=== PATIENT | male | born 1995 | race Caucasian/White ===

== ENCOUNTER 2020-03-08 17:20 | Emergency (ER) | payer BC ==
[2020-03-08 19:40] LABS: Protime INR 0.93
[2020-03-08 19:41] LABS: Absolute Lymphocytes (CBC) 2.9 K/uL (0.7-4.9); Basophils % 0.6 % (0-1.3); Hematocrit 41.8 % (39.6-49.0); Lymphocytes % 25.7 % (15.3-44.8); MPV 8.3 fL (7.6-11.3); RBC Red Blood Cell Count 4.77 M/uL (4.33-5.43)
[2020-03-08 19:47] LABS: BUN Blood Urea Nitrogen 10 mg/dL (7-18); Bicarbonate 29 mmol/L (21-32); Glucose Level 86 mg/dL (74-106); Magnesium 2.3 mg/dL (1.8-2.4); Potassium 4.1 mmol/L (3.5-5.1); Sodium Level 141 mmol/L (136-145); Troponin (Emerg Dept Use Only) < 0.02 ng/mL (0.0-0.045)
--- NOTE | 2020-03-08 20:02 | RAD REPORT ---
EXAM DESCRIPTION: Kim Valentine And Carlito (2 Views)03/08/2020 7:00 pm CLINICAL HISTORY: Chest pain COMPARISON: January 2020 FINDINGS: The lungs appear clear of acute infiltrate. The heart is normal size IMPRESSION: No acute abnormalities displayed
[2020-03-08 20:03] LABS: C-Reactive Protein < 2.90 mg/L (<3.00); NT PRO-BNP < 5 pg/mL (<125)
--- NOTE | 2020-03-08 20:21 | ER ---
Nurse's Notes [facility] Name: Danny Buckley Age: 24 yrs Sex: Male : 1995 Arrival Date: 03/08/2020 Time: 17:22 Bed 6 Private MD: Diagnosis: Chest pain, unspecified Presentation: 03/08 17:40 Chief complaint: Patient states: "I wasn't going to come, but for the last week and a jd3 half my left arm hurts off and on and with the arm pain, my chest hurts too.". Coronavirus screen: At this time, the client does not indicate any symptoms associated with coronavirus-19. Ebola Screen: Patient negative for fever greater than or equal to 101.5 degrees Fahrenheit, and additional compatible Ebola Virus Disease symptoms. Initial Sepsis Screen: Does the patient meet any 2 criteria? No. Patient's initial sepsis screen is negative. Does the patient have a suspected source of infection? No. Patient's initial sepsis screen is negative. Risk Assessment: Do you want to hurt yourself or someone else? Patient reports no desire to harm self or others. Onset of symptoms was March 08, 2020. 17:40 Method Of Arrival: Ambulatory jd3 17:40 Acuity: BE 3 jd3 Historical: - Allergies: 17:43 No Known Allergies; jd3 - Home Meds: 17:43 Claritin Oral [Active]; jd3 17:43 Vyvanse oral oral [Active]; jd3 - PMHx: 17:43 ADD/ADHD; jd3 - PSHx: 17:43 Appendectomy; jd3 - Immunization history:: Adult Immunizations up to date. - Social history:: Smoking status: Reported history of juuling and/or vaping. Screenin:32 Abuse screen: Denies threats or abuse. Denies injuries from another. Nutritional lp1 screening: No deficits noted. Tuberculosis screening: No symptoms or risk factors identified. Fall Risk None identified. Assessment: 19:30 General: Appears in no apparent distress. Behavior is calm, cooperative, appropriate lp1 for age. Pain: Complains of pain in chest Pain radiates to left arm Pain currently is 0 out of 10 on a pain scale. Quality of pain is described as sharp, Pain began x 1 week Is intermittent. Neuro: Level of Consciousness is awake, alert, obeys commands. Cardiovascular: Capillary refill < 3 seconds in bilateral fingers Patient's skin is warm and dry. Rhythm is sinus bradycardia. Respiratory: Airway is patent Respiratory effort is even, unlabored, Respiratory pattern is regular, symmetrical, Breath sounds are clear bilaterally. GI: No signs and/or symptoms were reported involving the gastrointestinal system. : No signs and/or symptoms were reported regarding the genitourinary system. EENT: No signs and/or symptoms were reported regarding the EENT system. Derm: Skin is pink, warm \\T\\ dry. Musculoskeletal: No deficits noted. Vital Signs: 17:44 BP 136 / 92; Pulse 62; Resp 18 S; Temp 98.8(O); Pulse Ox 99% on R/A; Weight 92.99 kg jd3 (R); Height 6 ft. 0 in. (182.88 cm) (R); Pain 4/10; 19:32 BP 123 / 80; Pulse 49; Resp 16; Pulse Ox 100% on R/A; lp1 20:28 BP 127 / 70; Pulse 50; Resp 19; Pulse Ox 100% on R/A; lp1 17:44 Body Mass Index 27.80 (92.99 kg, 182.88 cm) jd3 ED Course: 17:22 Patient arrived in ED. as 17:41 Triage completed. jd3 17:43 Arm band placed on. jd3 18:59 Chest Pa And Lat (2 Views) XRAY In Process Unspecified. EDMS 19:03 Curly Mcmullen PA is PHCP. jr8 19:03 Memo Granda MD is Attending Physician. jr8 19:09 Cindy Morrison, ESTER is Primary Nurse. lp1 19:20 Inserted saline lock: 20 gauge in right antecubital area, using aseptic technique. lp1 Blood collected. 19:20 Initial lab(s) drawn, by me, sent to lab. lp1 19:32 Patient has correct armband on for positive identification. Placed in gown. Bed in low lp1 position. Call light in reach. playground monitor on. Pulse ox on. NIBP on. 19:32 Patient maintains SpO2 saturation greater than 95% on room air. lp1 20:19 Frederic Tobias MD is Referral Physician. jr8 20:28 No provider procedures requiring assistance completed. IV discontinued, No lp1 redness/swelling at site. Pressure dressing applied. Administered Medications: No medications were administered Outcome: 20:20 Discharge ordered by . caryl 20:28 Discharged to home ambulatory. lp1 20:28 Condition: good 20:28 Discharge instructions given to patient, Instructed on discharge instructions, follow up and referral plans. Demonstrated understanding of instructions, follow-up care. 20:28 Patient left the ED. lp1 Signatures: Dispatcher [employer] EDAimee Gillespie Laura, RN RN lp1 Curly Mcmullen PA PA jr8 Jourdan José RN RN jd3 Corrections: (The following items were deleted from the chart) 17:43 17:43 PMHx: None; carlee bejarano
--- NOTE | 2020-03-08 20:21 | EDPHYS ---
Physician Documentation [facility] Name: Danny Buckley Age: 24 yrs Sex: Male : 1995 Arrival Date: 03/08/2020 Time: 17:22 Bed 6 Private MD: ED Physician Memo Granda HPI: 03/08 19:45 This 24 yrs old Male presents to ER via Ambulatory with complaints of Chest jr8 Pain, Arm Pain. 19:45 The patient or guardian reports chest pain that is located primarily in the substernal jr8 area. The pain radiates to the left arm. Associated signs and symptoms: The patient has no apparent associated signs or symptoms. The chest pain is described as a pressure. Duration: The patient or guardian reports multiple episodes, that are intermittent. Modifying factors: The symptoms are alleviated by nothing. the symptoms are aggravated by nothing. Severity of pain: At its worst the pain was mild in the emergency department the pain has resolved and did so earlier today. The patient has not experienced similar symptoms in the past. The patient has not recently seen a physician. Patient stated that he has had several episodes that very in time and duration of chest pain with radiation to arm. Nothing makes it better or worse other than time. Stated that it has been going on for a week or so but not going away . Historical: - Allergies: 17:43 No Known Allergies; jd3 - Home Meds: 17:43 Claritin Oral [Active]; jd3 17:43 Vyvanse oral oral [Active]; jd3 - PMHx: 17:43 ADD/ADHD; jd3 - PSHx: 17:43 Appendectomy; jd3 - Immunization history:: Adult Immunizations up to date. - Social history:: Smoking status: Reported history of juuling and/or vaping. ROS: 19:45 Eyes: Negative for injury, pain, redness, and discharge, ENT: Negative for injury, jr8 pain, and discharge, Neck: Negative for injury, pain, and swelling, Respiratory: Negative for shortness of breath, cough, wheezing, and pleuritic chest pain, Abdomen/GI: Negative for abdominal pain, nausea, vomiting, diarrhea, and constipation, Back: Negative for injury and pain, MS/Extremity: Negative for injury and deformity, Skin: Negative for injury, rash, and discoloration, Neuro: Negative for headache, weakness, numbness, tingling, and seizure. 19:45 Cardiovascular: Positive for chest pain, Negative for edema, orthopnea, palpitations, paroxysmal nocturnal dyspnea. Exam: 19:45 Eyes: Pupils equal round and reactive to light, extra-ocular motions intact. Lids and jr8 lashes normal. Conjunctiva and sclera are non-icteric and not injected. Cornea within normal limits. Periorbital areas with no swelling, redness, or edema. ENT: Nares patent. No nasal discharge, no septal abnormalities noted. Tympanic membranes are normal and external auditory canals are clear. Oropharynx with no redness, swelling, or masses, exudates, or evidence of obstruction, uvula midline. Mucous membranes moist. Neck: Trachea midline, no thyromegaly or masses palpated, and no cervical lymphadenopathy. Supple, full range of motion without nuchal rigidity, or vertebral point tenderness. No Meningismus. Chest/axilla: Normal chest wall appearance and motion. Nontender with no deformity. No lesions are appreciated. Cardiovascular: Regular rate and rhythm with a normal S1 and S2. No gallops, murmurs, or rubs. Normal PMI, no JVD. No pulse deficits. Respiratory: Lungs have equal breath sounds bilaterally, clear to auscultation and percussion. No rales, rhonchi or wheezes noted. No increased work of breathing, no retractions or nasal flaring. Abdomen/GI: Soft, non-tender, with normal bowel sounds. No distension or tympany. No guarding or rebound. No evidence of tenderness throughout. Back: No spinal tenderness. No costovertebral tenderness. Full range of motion. Skin: Warm, dry with normal turgor. Normal color with no rashes, no lesions, and no evidence of cellulitis. MS/ Extremity: Pulses equal, no cyanosis. Neurovascular intact. Full, normal range of motion. Neuro: Awake and alert, GCS 15, oriented to person, place, time, and situation. Cranial nerves II-XII grossly intact. Motor strength 5/5 in all extremities. Sensory grossly intact. Cerebellar exam normal. Normal gait. Vital Signs: 17:44 BP 136 / 92; Pulse 62; Resp 18 S; Temp 98.8(O); Pulse Ox 99% on R/A; Weight 92.99 kg jd3 (R); Height 6 ft. 0 in. (182.88 cm) (R); Pain 4/10; 19:32 BP 123 / 80; Pulse 49; Resp 16; Pulse Ox 100% on R/A; lp1 20:28 BP 127 / 70; Pulse 50; Resp 19; Pulse Ox 100% on R/A; lp1 17:44 Body Mass Index 27.80 (92.99 kg, 182.88 cm) jd3 MDM: 19:04 Patient medically screened. jr8 20:19 Data reviewed: vital signs, nurses notes, lab test result(s), EKG, radiologic studies, jr8 plain films. Data interpreted: Pulse oximetry: on room air is 100 %. Interpretation: normal. 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 03/08 19:04 Order name: Basic Metabolic Panel; Complete Time: 20:18 jr8 03/08 19:04 Order name: CBC with Diff; Complete Time: 20:18 jr8 03/08 19:04 Order name: Magnesium; Complete Time: 20:18 jr8 03/08 19:04 Order name: NT PRO-BNP; Complete Time: 20:18 jr8 03/08 19:04 Order name: PT-INR; Complete Time: 19:53 jr8 03/08 19:04 Order name: Troponin (emerg Dept Use Only); Complete Time: 20:18 jr8 03/08 18:11 Order name: Chest Pa And Lat (2 Views) XRAY; Complete Time: 20:18 snw 03/08 18:11 Order name: EKG; Complete Time: 18:11 snw 03/08 18:11 Order name: EKG - Nurse/Tech; Complete Time: 19:02 snw 03/08 19:04 Order name: Cardiac monitoring; Complete Time: 19:29 jr8 03/08 19:04 Order name: IV Saline Lock; Complete Time: 19:29 jr8 03/08 19:04 Order name: ESR; Complete Time: 20:18 jr8 03/08 19:04 Order name: CRP; Complete Time: 20:18 jr8 03/08 19:04 Order name: Labs collected and sent; Complete Time: 19:29 jr8 03/08 19:04 Order name: O2 Per Protocol; Complete Time: 19:29 8 03/08 19:04 Order name: O2 Sat Monitoring; Complete Time: 19:29 8 Administered Medications: No medications were administered Disposition: 03/08/20 20:20 Discharged to Home. Impression: Chest pain, unspecified. - Condition is Stable. - Discharge Instructions: Nonspecific Chest Pain. - Medication Reconciliation Form, Thank You Letter, Antibiotic Education, Prescription Opioid Use form. - Follow up: Frederic Tobias MD; When: 2 - 3 days; Reason: Recheck today's complaints, Continuance of care, Re-evaluation by your physician. - Problem is new. - Symptoms have improved. Addendum: 03/11/2020 17:55 Co-signature as Attending Physician, Memo Granda MD. r n Signatures: Dispatcher [employer] EDNE Natacha López, PAPER SUPERVISOR-C PAPER SUPERVISOR-Csnw Memo Granda MD MD rn Pena, Laura RN RN lp1 Curly Mcmullen, RADHA PA jr8 Jourdan José RN RN jd3 Corrections: (The following items were deleted from the chart) 03/08 17:43 17:43 PMHx: None; jd3 jd3 19:35 19:05 Chest Single View+RAD.RAD.BRZ ordered. [facility] EDNE 20:28 20:20 03/08/2020 20:20 Discharged to Home. Impression: Chest pain, unspecified. lp1 Condition is Stable. Forms are Medication Reconciliation Form, Thank You Letter, Antibiotic Education, Prescription Opioid Use. Follow up: Frederic Tobias; When: 2 - 3 days; Reason: Recheck today's complaints, Continuance of care, Re-evaluation by your physician. Problem is new. Symptoms have improved. jr8
[2020-03-08 20:35] VITALS: TEMP 98.8
[2020-03-08 20:36] VITALS: O2SAT 100
[2020-03-08 20:37] VITALS: BP 127/70
--- NOTE | 2020-03-09 08:21 | EKG ---
Test Date: 2020-03-08 Test Time: 17:54:34 Reverse Logistics Analyst: KETAN MEASUREMENT RESULTS: Intervals: Rate: 53 IL: 156 QRSD: 84 QT: 426 QTc: 399 [place]: P: 55 IL: 156 QRS: 43 T: 20 INTERPRETIVE STATEMENTS: Sinus bradycardia Otherwise normal ECG No previous ECG available for comparison Electronically Signed On 03-09-20 08:19:23 CDT by Frederic Tobias
--- OUTSIDE RECORDS SUMMARY | 2020-03-13 21:12 | XMS REPORT | Continuity of Care Document ---
:1995 Author Organization Formerly [facility] t Address [address] [place] [address] Care Team Providers Name Role Phone Lab, Fam Pob I Attending Clinician Unavailable Doctor Unassigned, Name Attending Clinician Unavailable Problems This patient has no known problems. Allergies, Adverse Reactions, Alerts This patient has no known allergies or adverse reactions. Medications This patient has no known medications. Procedures This patient has no known procedures. Encounters Start End Encounter Admission Attending Care Care Encounter Source Date/Time Date/Time Type Type Clinicians Facility Department ID 2020-01-19 2020-01-19 Laboratory Lab, [facility] [id number] 16:19:31 16:39:31 Only Fam Pob I Health [id number] [place] [id number] [place] [id number] [address] 2020-01-19 2020-01-19 Letter Doctor HARLEEN [id number] 00:00:00 00:00:00 (Out) Unassigned, JIMY [id number] [place] [facility] [id number] Results This patient has no known results.
== END 2020-03-08 20:28 | disposition home or self-care (01) ==
LOC: ER 17:20
DX: R07.9 Chest pain, unspecified (principal); F90.9 Attention-deficit hyperactivity disorder, unspecified type; Z87.891 Personal history of nicotine dependence
CPT/HCPCS: 36415; 71046; 80048; 83735; 83880; 84484; 85025; 85610; 85652; 86140; 93005; 99285